=== PATIENT | female | born 1990 | race Caucasian/White ===

== ENCOUNTER 2023-01-22 08:10 | Emergency (ER) | payer OTHER ==
[~2023-01-22] VITALS: Ht 165.1 cm; Wt 74.8 kg
[2023-01-22] MEDS ORDERED: ALBU8.5H8 INH (08:47)
[2023-01-22 09:45] VITALS: BP 115/74; TEMP 99; O2SAT 99
== END 2023-01-22 09:46 | disposition home or self-care (01) ==
LOC: ER 08:33
DX: U07.1 COVID-19 (principal)

== ENCOUNTER 2024-12-30 17:00 | Emergency (ER) | payer OTHER ==
[~2024-12-30] VITALS: Ht 165.1 cm; Wt 69.4 kg
[~2024-12-30 17:00] MED LIST: ALBU8.5H8 INH
[2024-12-30 17:41] VITALS: BP 141/87; TEMP 97.9
[2024-12-30] MEDS ORDERED: IBUP-1490 PO (18:34)
[2024-12-30 18:49] VITALS: O2SAT 98
== END 2024-12-30 18:50 | disposition home or self-care (01) ==
LOC: ER 17:04
DX: S00.83XA Contusion of other part of head, initial encounter (principal); W22.8XXA Striking against or struck by other objects, initial encounter; Y93.02 Activity, running; Y92.39 Other specified sports and athletic area as the place of occurrence of the external cause; Y99.8 Other external cause status